=== PATIENT | male | born 1995 | race African-American/Black ===

== ENCOUNTER 2017-03-19 08:32 | Emergency (ER) | payer SELFPAY ==
[~2017-03-19] VITALS: Ht 180.3 cm; Wt 68.2 kg
[~2017-03-19 08:32] MED LIST: ALBU8HFA IH; PRED10 PO; PRED20 PO
[2017-03-19 10:09] VITALS: BP 139/84
== END 2017-03-19 10:10 | disposition home or self-care (01) ==
LOC: EMS 08:34
DX: J45.909 Unspecified asthma, uncomplicated (principal); F17.210 Nicotine dependence, cigarettes, uncomplicated
CPT/HCPCS: 99283